=== PATIENT | male | born 1955 | race Two or more races ===

== ENCOUNTER 2017-08-13 20:57 | Emergency (ER) | payer BC ==
[~2017-08-13] VITALS: Ht 177.8 cm; Wt 86.4 kg
[2017-08-13] MEDS ORDERED: TRIA1CAP2 PO (21:10)
[2017-08-13] MEDS ORDERED: SILD25 PO (21:10)
[2017-08-13] MEDS ORDERED: LORA10TA7 PO (21:10)
[2017-08-13] MEDS ORDERED: LISI-661 PO (21:10)
[2017-08-13] MEDS ORDERED: ATOR10TA84 PO (21:10)
[2017-08-13] MEDS ORDERED: FLUT16H NASAL (21:10)
[2017-08-13] MEDS ORDERED: CYCLOBENZAPRINE HCL 10 MG TABLET PO ONE (22:30)
[2017-08-13] MEDS ORDERED: KETOROLAC TROMETHAMINE 60 MG/2 ML VIAL IM ONE (22:30)
[2017-08-13 22:50] VITALS: BP 117/61
== END 2017-08-13 23:05 | disposition home or self-care (01) ==
LOC: EMS 20:59
DX: S29.011A Strain of muscle and tendon of front wall of thorax, initial encounter (principal); I10 Essential (primary) hypertension; E78.00 Pure hypercholesterolemia, unspecified; F17.220 Nicotine dependence, chewing tobacco, uncomplicated; X58.XXXA Exposure to other specified factors, initial encounter; Y93.89 Activity, other specified; Y92.89 Other specified places as the place of occurrence of the external cause; Y99.8 Other external cause status
CPT/HCPCS: 93005; 96372; 99283; 99406; J1885